=== PATIENT | female | born 1955 | race Caucasian/White ===

== ENCOUNTER → 2020-04-15 | Outpatient (CLI) | payer OTHER ==
--- NOTE | 2020-04-15 13:43 | RADIOLOGY REPORT (SQ) ---
EXAM DESCRIPTION: NM WHOLE BODY BONE SCAN IMAGES COMPLETED DATE/TIME: 04/15/2020 1:18 pm REASON FOR STUDY: BREAST CA C50.212 MALIG NEOPLASM OF UPPER-INNER QUADRANT OF LEFT FEMAL COMPARISON: No available imaging studies for comparison. RADIONUCLIDE AND DOSE: 20 millicuries Tc99m MDP. The route of agent administration: Intravenous. ADDITIONAL DRUGS AND DOSES: None. TECHNIQUE: Routine delayed images at 3 hours post radionuclide injection acquired of the bony skelet on including anterior and posterior whole-body projections and additional focused images as needed. LIMITATIONS: None. FINDINGS: BONES: Normal visualization without areas of photopenia or increased bony uptake of radiop harmaceutical. KIDNEYS: Symmetric excretion without obstruction. OTHER: No other significant finding. IMPRESSION: There is no evidence of metastatic disease to bone. COMMENT: Quality measure 147: No available prior imaging studies for comparison TECHNICAL DOCUMENTATION: JOB ID: [id number] 2010 [employer]- All Rights Reserved Reading location - IP/workstation name: [email or web address]
== END ==
LOC: RAD 08:59
PROVIDERS: ATTEND Internal Medicine Hematology & Oncology
DX: C50.212 Malignant neoplasm of upper-inner quadrant of left female breast (principal)
CPT/HCPCS: 78306; A9503; Q9969

== ENCOUNTER 2020-05-13 08:17 | Day surgery (SDC) | payer OTHER ==
[~2020-05-13 08:17] MED LIST: ACETAMINOPHEN 325 MG TABLET PO PRN; CEFAZOLIN 1 GM/D5W RTU 1 GM/50 ML RTUPB IV PRN
[2020-05-13 09:36] LABS: ABSOLUTE EOSINOPHILS # (AUTO) 0.1 10^3/uL (0.0-0.6); ABSOLUTE LYMPHOCYTES (AUTO) 2.6 10^3/uL (0.5-4.7); ABSOLUTE MONOCYTES (AUTO) 0.4 10^3/uL (0.1-1.4); ABSOLUTE NEUT (AUTO) 4.3 10^3/uL (1.7-8.2); BASOPHILS % (AUTO) 0.3 % (0-2); EOSINOPHILS % (AUTO) 0.8 % (0-6); LYMPHOCYTES % (AUTO) 35.3 % (13-45); MEAN CORPUSCULAR HEMOGLOBIN 31.7 pg (27.0-33.4); MEAN CORPUSCULAR HGB CONC 34.2 g/dL (32.0-36.0); MEAN CORPUSCULAR VOLUME 93 fl (80-97); MONOCYTES % (AUTO) 4.9 % (3-13); PLATELET COUNT 333 10^3/uL (150-450); RED BLOOD COUNT 4.42 10^6/uL (3.72-5.28); RED CELL DISTRIBUTION WIDTH 13.1 % (11.5-14.0); SEGMENTED NEUTROPHILS % (AUTO) 58.7 % (42-78); TOTAL CELLS COUNTED % (AUTO) 100 %; WHITE BLOOD COUNT 7.4 10^3/uL (4.0-10.5)
[2020-05-13] MEDS ORDERED: CEFAZOLIN 1 GM/D5W RTU 1 GM/50 ML RTUPB IV ONE (09:38)
[2020-05-13] MEDS ORDERED: LIDOCAINE 1% INJ-PF (10 MG/ML) 30 ML SDV ONE (09:40)
[2020-05-13] MEDS ORDERED: BACITRACIN INJ 50,000 UNIT VIAL ONE (09:40)
[2020-05-13] MEDS ORDERED: MIDAZOLAM HCL INJ 5 MG/1 ML VIAL ONE (10:15)
[2020-05-13] MEDS ORDERED: FENTANYL CITRATE INJ/PF 100 MCG/2 ML AMPUL ONE (10:16)
--- NOTE | 2020-05-13 11:22 | Discharge Summary ---
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 Blackwell and or other provider [facility], 2 weeks; may shower in 48 hours; may Tylenol and/or Motrin as needed pain. May use port in 48 hours Referrals: CLARISSE MORENO MD [Primary Care Provider] - Discharge Activity: Activity As Tolerated Home Care Assistance: None Needed Report the Following to Your Physician Immediately: Shortness of Breath, Increase in Pain, Fever over 101 Degrees
--- NOTE | 2020-05-13 11:26 | Operative Report ---
Operative Report DATE OF SURGERY: 05/13/20 PREOPERATIVE DIAGNOSIS: Triple negative left breast carcinoma POSTOPERATIVE DIAGNOSIS: Same OPERATION: 1. Ultrasound directed insertion of single lumen Tlftos-m-Tncq catheter into the right internal jugular vein. 2. Use of intraoperative ultrasonography. 3. Interpretation of intraoperative fluoroscopy SURGEON: CLARISSE AGUILAR ANESTHESIA: Moderate Sedation TISSUE REMOVED OR ALTERED: None COMPLICATIONS: None ESTIMATED BLOOD LOSS: Scant INTRAOPERATIVE FINDINGS: See below PROCEDURE: Patient was taken from the ambulatory surgery area to the cardiac catheterization lab where she was placed supine position, head rotated to the left, the right chest and neck prepped and draped in sterile fashion with chlorhexidine. Sequential surgical timeout conducted. Surgical plan discussed. Focused ultrasound of the right neck revealed a compressible, suitable internal jugular vein appropriate for cannulation. The overlying skin was anesthetized with 1% plain lidocaine. An opening was made the skin with a #15 blade, using ultrasound real-time as a guide, the micro needle was threaded into the right internal jugular vein. Images were retained for the record. A suitable site for placement of the port was chosen the right subclavian position. Skin was anesthetized 1% plain lidocaine. A 3 cm horizontal incision was made parallel to the clavicle. A port pocket was developed large enough to accommodate a single-chamber Szkxze-l-Zxzd using electrocautery and blunt finger dissection. Catheter was then trimmed to the appropriate length approximately 24 cm, tunnel between the 2 incisions, and attached to the port with the plastic ring. The port was tucked into the right subclavian pocket. The micro wire was switched over to a conventional 0.030 guidewire all under fluoroscopic guidance. A 9 [place] dilator introducer sheath was threaded over the conventional guidewire, dilator and wire removed, and free catheter fragment threaded into the right internal jugular vein. Strip away sheath was removed uneventfully leaving the tip of the catheter at the junction between the superior vena cava and the right atrium. There was no kinking of the catheter at the neck. Images were retained for the record. We aspirated and flushed the port successfully. Wounds closed with a 3-0 Vicryl benzoin and Steri-Strips. Patient tolerated procedure well. Discharge instructions provided.
--- NOTE | 2020-05-13 11:30 | RADIOLOGY REPORT (SQ) ---
EXAM DESCRIPTION: PORTACATH INSERTION IMAGES COMPLETED DATE/TIME: 05/13/2020 11:19 am REASON FOR STUDY: LT BREAST CA C50.912 MALIGNANT NEOPLASM OF UNSPECIFIED SITE OF LEFT FEMAL COMPARISON: None. FLUOROSCOPY TIME: Less than 1 second Spot images saved to PACS. TECHNIQUE: Intra-operative images acquired during surgical procedure to evaluate progress. NUMBER OF IMAGES: 2 LIMITATIONS: None. FINDINGS: Fluoroscopy was provided for intraoperative procedure. Please refer to the operative repo rt further discussion. Final film demonstrates Xorgzr-I-Oguf in place tip overlies the SVC. IMPRESSION: IMAGE(S) OBTAINED DURING PROCEDURE. COMMENT: Quality ID 145: Final reports for procedures using fluoroscopy that document radiation exp osure indices, or exposure time and number of fluorographic images (if radiation exposure indices are not available) Please consult full operative report of the attending physician for description of the procedure. TECHNICAL DOCUMENTATION: JOB ID: [id number] 2010 [employer]- All Rights Reserved Reading location - IP/workstation name: [email or web address]
[2020-05-13 12:14] VITALS: BP 114/69
== END 2020-05-13 12:10 | disposition home or self-care (01) ==
LOC: CCL 08:17
PROVIDERS: ATTEND Surgery
DX: C50.912 Malignant neoplasm of unspecified site of left female breast (principal); F17.200 Nicotine dependence, unspecified, uncomplicated; J44.9 Chronic obstructive pulmonary disease, unspecified; Z20.828 Contact with and (suspected) exposure to other viral communicable diseases; Z85.819 Personal history of malignant neoplasm of unspecified site of lip, oral cavity, and pharynx; Z80.8 Family history of malignant neoplasm of other organs or systems; G43.909 Migraine, unspecified, not intractable, without status migrainosus; Z79.899 Other long term (current) drug therapy
CPT/HCPCS: 36415; 85025; 87635; 36561; 76937; 77001; C1752; C1788; J3490 ×2; J0690; J3010; J2250; J1644; C9803